=== PATIENT | male | born 1985 | race Caucasian/White ===

== ENCOUNTER 2019-10-25 | Emergency (ER) | payer SELFPAY ==
[2019-10-25 09:49] LABS: URINE BILIRUBIN - DIPSTICK NEGATIVE (NEGATIVE); URINE BLOOD DIPSTICK TRACE-INTACT (NEGATIVE); URINE COLOR YELLOW; URINE GLUCOSE - DIPSTICK NEGATIVE (NEGATIVE); URINE KETONE NEGATIVE (NEGATIVE); URINE LEUK ESTERASE NEGATIVE (NEGATIVE); URINE NITRITE - DIPSTICK NEGATIVE (Negative); URINE PH 6.5 (4.5-8.0); URINE PROTEIN - DIPSTICK NEGATIVE (NEG-TRACE); URINE SPECIFIC GRAVITY 1.025; URINE UROBILINOGEN - DIPSTICK 0.2 E.U./dL (0.2)
[2019-10-25] MEDS ORDERED: ULTRAM50 M1 PO (10:05)
== END 2019-10-25 10:13 | disposition home or self-care (01) | DRG 605 ==
PROVIDERS: Emergency Medicine
DX: S20.211A Contusion of right front wall of thorax, initial encounter (principal); F17.210 Nicotine dependence, cigarettes, uncomplicated; W22.8XXA Striking against or struck by other objects, initial encounter; Y92.009 Unspecified place in unspecified non-institutional (private) residence as the place of occurrence of the external cause

== ENCOUNTER 2020-04-07 10:22 | Emergency (ER) | payer SELFPAY ==
[~2020-04-07] VITALS: Ht 198.1 cm; Wt 70.0 kg
[~2020-04-07 10:22] MED LIST: ULTRAM50 M1 PO
[2020-04-07 11:17] LABS: URINE BILIRUBIN - DIPSTICK NEGATIVE (NEGATIVE); URINE BLOOD DIPSTICK NEGATIVE (NEGATIVE); URINE COLOR YELLOW; URINE GLUCOSE - DIPSTICK NEGATIVE (NEGATIVE); URINE KETONE NEGATIVE (NEGATIVE); URINE LEUK ESTERASE TRACE (NEGATIVE); URINE NITRITE - DIPSTICK NEGATIVE (Negative); URINE PROTEIN - DIPSTICK NEGATIVE (NEG-TRACE); URINE UROBILINOGEN - DIPSTICK 0.2 E.U./dL (0.2)
[2020-04-07] MEDS ORDERED: DOXYCYC MONO100 M2 PO (12:16)
[2020-04-07 12:29] VITALS: BP 120/71
== END 2020-04-07 12:29 | disposition home or self-care (01) | DRG 951 ==
LOC: ED 10:22
PROVIDERS: Emergency Medicine
DX: Z20.2 Contact with and (suspected) exposure to infections with a predominantly sexual mode of transmission (principal); F17.210 Nicotine dependence, cigarettes, uncomplicated

== ENCOUNTER 2020-04-19 08:58 | Emergency (ER) | payer SELFPAY ==
[~2020-04-19] VITALS: Ht 198.1 cm; Wt 90.9 kg
[~2020-04-19 08:58] MED LIST changes: +DOXYCYC MONO100 M2 PO
[2020-04-19] MEDS ORDERED: IBUPROFEN600 MG PO (10:45)
[2020-04-19] MEDS ORDERED: KEFLEX500 M1 PO (10:45)
[2020-04-19 10:56] VITALS: BP 137/65
== END 2020-04-19 10:56 | disposition home or self-care (01) | DRG 605 ==
LOC: ED 08:58
PROC: 0HQDXZZ Repair Right Lower Arm Skin, External Approach (ICD-10-PCS; principal; 2020-04-19)
DX: S61.511A Laceration without foreign body of right wrist, initial encounter (principal); F17.210 Nicotine dependence, cigarettes, uncomplicated; W25.XXXA Contact with sharp glass, initial encounter; Y92.009 Unspecified place in unspecified non-institutional (private) residence as the place of occurrence of the external cause

== ENCOUNTER 2020-04-27 08:30 | Emergency (ER) | payer SELFPAY ==
[~2020-04-27] VITALS: Ht 198.1 cm; Wt 100.0 kg
[~2020-04-27 08:30] MED LIST changes: +IBUPROFEN600 MG PO; +KEFLEX500 M1 PO
[2020-04-27 09:27] VITALS: BP 124/76
== END 2020-04-27 09:33 | disposition home or self-care (01) | DRG 950 ==
LOC: ED 08:30
DX: S61.511D Laceration without foreign body of right wrist, subsequent encounter (principal); F17.210 Nicotine dependence, cigarettes, uncomplicated; X58.XXXD Exposure to other specified factors, subsequent encounter